=== PATIENT | male | born 1980 | race Two or more races ===

== ENCOUNTER 2018-09-26 16:38 | Emergency (ER) | payer BC ==
[~2018-09-26] VITALS: Ht 177.8 cm; Wt 133.8 kg
[2018-09-26 16:58] VITALS: BP 130/80
== END 2018-09-26 21:28 | disposition home or self-care (01) ==
LOC: ER 16:38
DX: J06.9 Acute upper respiratory infection, unspecified (principal)

== ENCOUNTER 2022-01-23 16:56 | Emergency (ER) | payer BC ==
[~2022-01-23] VITALS: Ht 177.8 cm; Wt 151.0 kg
[2022-01-23 18:57] VITALS: BP 147/83
[2022-01-23] MEDS ORDERED: KETOROLAC TROMETH 30 MG/ML 1ML VIAL IM ONE (19:30)
[2022-01-23] MEDS ORDERED: IBUP800T27 PO (20:12)
== END 2022-01-23 20:16 | disposition home or self-care (01) ==
LOC: ER 16:56
DX: G44.209 Tension-type headache, unspecified, not intractable (principal); E66.9 Obesity, unspecified; Z68.42 Body mass index [BMI] 45.0-49.9, adult; Z56.3 Stressful work schedule
CPT/HCPCS: 96372; 99283; J1885

== ENCOUNTER 2022-06-01 21:39 | Emergency (ER) | payer BC ==
[~2022-06-01 21:39] MED LIST: IBUP800T27 PO
[2022-06-01 21:48] VITALS: BP 149/103
[2022-06-02] MEDS ORDERED: AMOX500T3 PO (02:21)
== END 2022-06-02 02:26 | disposition home or self-care (01) ==
LOC: ER 21:39
DX: J03.90 Acute tonsillitis, unspecified (principal); I10 Essential (primary) hypertension; Z20.822 Contact with and (suspected) exposure to COVID-19
CPT/HCPCS: 36415

== ENCOUNTER → 2025-08-17 | Outpatient (CLI) | payer BC ==
[~2025-08-17] MED LIST changes: +AMOX500T3 PO; +IBUP-1456 PO; -IBUP800T27 PO
[2025-08-17 11:17] LABS: Hematocrit 48.9 % (41.0-53.0); Hemoglobin 16.5 g/dL (13.5-17.5); Mean Corpuscular Hemoglobin 27.6 pg (28.0-32.0); Mean Corpuscular Volume 81.5 fL (80.0-100.0); Nucleated Red Blood Cells % 0.1 %
[2025-08-17 11:24] LABS: Urine Protein, UAD Negative (Negative)
[2025-08-17 11:49] LABS: Albumin 4.5 g/dL (3.2-4.8); Alkaline Phosphatase 107 U/L (46-116); Anion Gap 10 (5-15); BUN/Creatinine Ratio 13.3 (10.0-20.0); Blood Urea Nitrogen 12 mg/dL (9-23); Calcium 9.5 mg/dL (8.7-10.4); Carbon Dioxide 27 mmol/L (20-31); Chloride 105 mmol/L (98-107); Cholesterol 162 mg/dL (< 200); Glucose 95 mg/dL (74-106); Potassium 4.1 mmol/L (3.5-5.1); Sodium 142 mmol/L (136-145); Total Protein 7.6 g/dL (5.7-8.2); Triglycerides 110 mg/dL (< 150)
[2025-08-17 11:50] LABS: Alanine Aminotransferase 42 U/L (7-40); Bilirubin, Total 0.9 mg/dL (0.2-1.0); HDL Cholesterol 32 mg/dL (40-59)
== END | disposition home or self-care (01) ==
LOC: LAB 10:55
PROVIDERS: ATTEND Student in an Organized Health Care Education/Training Program
DX: I10 Essential (primary) hypertension (principal); R73.9 Hyperglycemia, unspecified; K92.1 Melena; R21 Rash and other nonspecific skin eruption
CPT/HCPCS: 36415; 80053; 80061; 81001; 82785; 83036; 84443; 85025; 86003

== ENCOUNTER → 2025-09-07 | Outpatient (CLI) | payer BC | END | disposition home or self-care (01) | LOC: LAB 15:29 | PROVIDERS: ATTEND Student in an Organized Health Care Education/Training Program | DX: I10 Essential (primary) hypertension (principal); K92.1 Melena; R73.9 Hyperglycemia, unspecified; R21 Rash and other nonspecific skin eruption | CPT/HCPCS: 82274 ==